=== PATIENT | female | born 1940 ===

== ENCOUNTER 2017-07-27 23:00 | Emergency (ER) | payer BC ==
[2017-07-27 23:11] VITALS: BP 139/70; PULSE 78; RESP 16; TEMP 97.7; O2SAT 98
--- NOTE | 2017-07-27 23:37 | ED PDOC ---
HPI: CCC, URI, Sore Throat Time Seen by Provider: 07/27/17 23:21 Chief Complaint (Nursing): ENT Problem Chief Complaint (Provider): ENT Additional Complaint(s): Pt is a 77 yo female presents to the ED with complaints of nose pain and knee pain after slipping in her room next to her bed, hitting her nose and knee against the bedpost. Pt denies LOC. No episodes of vomiting. No headache. Past Medical History Reviewed: Nursing Documentation, Vital Signs Vital Signs: Last Vital Signs Temp 97.7 F 07/27/17 23:06 Pulse 78 07/27/17 23:06 Resp 16 07/27/17 23:06 BP 139/70 07/27/17 23:06 Pulse Ox 98 07/28/17 01:12 - Medical History PMH: No Chronic Diseases - Surgical History Surgical History: No Surg Hx - Family History Family History: States: No Known Family Hx - Living Arrangements Living Arrangements: With Family - Social History Current smoker - smoking cessation education provided: No Alcohol: None Drugs: Denies - Home Medications Home Medications: Ambulatory Orders Medication Instructions Recorded Ibuprofen [Motrin] 600 mg PO Q6 #20 tab 07/28/17 - Allergies Allergies/Adverse Reactions: Allergies Allergy/AdvReac Type Severity Reaction Status Date / Time No Known Allergies Allergy Verified 07/27/17 23:26 Review of Systems ROS Statement: Except As Marked, All Systems Reviewed And Found Negative ENT: Positive for: Nose Pain Musculoskeletal: Positive for: Other (knee pain) Physical Exam - Reviewed Nursing Documentation Reviewed: Yes Vital Signs Reviewed: Yes - Physical Exam Appears: Positive for: Well, Non-toxic, No Acute Distress Head Exam: Positive for: ATRAUMATIC, NORMAL INSPECTION, NORMOCEPHALIC Skin: Positive for: Normal Color, Warm, DRY Eye Exam: Positive for: EOMI, Normal appearance, PERRL ENT: Positive for: Other ((+) nasal bridge ecchymosis and edema. (-) septal hematoma). Negative for: Pharyngeal Erythema, Tonsillar Exudate, Tonsillar Swelling Neck: Positive for: Normal, Painless ROM Cardiovascular/Chest: Positive for: Regular Rate, Rhythm Respiratory: Positive for: CNT, Normal Breath Sounds Gastrointestinal/Abdominal: Positive for: Normal Exam, Bowel Sounds, Soft Back: Positive for: Normal Inspection Extremity: Positive for: Other (left knee mild ecchymosis). Negative for: Swelling Neurologic/Psych: Positive for: Alert, Oriented - ECG O2 Sat by Pulse Oximetry: 98 Medical Decision Making Medical Decision Making: Left knee: (+) DJD, NAD, as read by PAIvanC Nasal bones: (+) non displaced nasal bone fractures, as read by PA-C Pt doing well on re-eval, declined analgesics. Advised to apply ice to affected areas. Motrin PRN Pain referred to Dr. Mcdowell for follow up. advised to return to ED if at anytime condition worsens Disposition - Clinical Impression Clinical Impression: Nasal bone fractures, Knee contusion - Patient ED Disposition Is Patient to be Admitted: No - Disposition Referrals: Dalton Mcdowell MD [Staff Provider] - Disposition: Routine/Home Disposition Time: 01:21 Condition: STABLE Prescriptions: Ibuprofen [Motrin] 600 mg PO Q6 #20 tab Instructions: Nasal Fracture (ED), Contusion in Adults (ED) Forms: [facility] ([place]) - POA Present On Arrival: None
--- NOTE | 2017-07-28 12:51 | RAD ---
PROCEDURE: Radiographs of Nasal Bones HISTORY: fall COMPARISON: None available. TECHNIQUE: Frontal and lateral radiographs of the nasal bones. FINDINGS: There is a potential nondisplaced fracture of the distal frontal portion of nasal bones with possible comminution present. Diffuse osteopenia may giving a heterogeneous density throughout nasal bones extent 20 the appearance of potential fracture. CT may be useful for follow-up. IMPRESSION: Comminuted fracture of the nasal bones is difficult to completely exclude though although mottled heterogeneous appearance of the nasal bones could be a function of osteoporosis. Follow-up CT may be useful for further characterization.
--- NOTE | 2017-07-28 12:58 | RAD ---
PROCEDURE: Left Knee Radiographs. HISTORY: Pain. COMPARISON: None. FINDINGS: BONES: No acute fracture or destructive bony lesion identified. JOINTS: Joint space narrowing is seen at the lateral greater than medial femorotibial compartments as well as of the patellofemoral articulation. Osteophytic development is seen in all 3 compartments as well as cortical sclerosis with the findings seen worst at the lateral compartment. A valgus degenerative for deformity is appreciated. No no subluxation or dislocation. JOINT EFFUSION: Borderline effusion noted at the suprasellar bursa. OTHER FINDINGS: None. IMPRESSION: Advanced tricompartmental osteoarthritis with borderline suprapatellar bursa effusion present. No fracture or dislocation appreciated .
== END 2017-07-28 01:03 | disposition home or self-care (01) ==
LOC: H.ER 23:00
DX: S02.2XXA Fracture of nasal bones, initial encounter for closed fracture (principal); S80.02XA Contusion of left knee, initial encounter; W01.190A Fall on same level from slipping, tripping and stumbling with subsequent striking against furniture, initial encounter